=== PATIENT | male | born 1950 | race Caucasian/White ===

== ENCOUNTER 2016-09-11 16:33 | Emergency (ER) | payer BC ==
[~2016-09-11] VITALS: Ht 175.3 cm; Wt 117.9 kg
[2016-09-11] MEDS ORDERED: Morphine Sulfate 4mg/ml Inj IVP ONE (17:00)
[2016-09-11] MEDS ORDERED: Ketorolac 30mg Inj IV ONE (17:00)
[2016-09-11] MEDS ORDERED: ALLOPURINOL100 M1 ORAL (17:39)
[2016-09-11] MEDS ORDERED: PRAVASTATIN SOD20 M1 ORAL (17:39)
[2016-09-11] MEDS ORDERED: LOSARTAN POTASS50 MG ORAL (17:39)
[2016-09-11] MEDS ORDERED: ASPIRIN81 MG ORAL (17:39)
[2016-09-11] MEDS ORDERED: METFORMIN HCL500 M5 PO (17:39)
[2016-09-11] MEDS ORDERED: VITAMIN D1000 UNI1 ORAL (17:39)
[2016-09-11 17:48] LABS: BASOPHILS % (AUTO) 0.7 % (0.0-2.0); EOSINOPHILS % (AUTO) 1.4 % (0.0-3.0); LYMPHOCYTES % (AUTO) 14.2 % (20.0-45.0); MEAN CORPUSCULAR HEMOGLOBIN 29.9 PG (27.0-31.0); MEAN CORPUSCULAR HGB CONC 33.1 G/DL (32.0-36.0); MEAN CORPUSCULAR VOLUME 90 FL (80-99); MEAN PLATELET VOLUME 5.9 FL (6.5-10.1); MONOCYTES % (AUTO) 5.5 % (1.0-10.0); NEUTROPHILS % (AUTO) 78.2 % (45.0-75.0); PLATELET COUNT 236 K/UL (150-450); RED BLOOD COUNT 4.84 M/UL (4.70-6.10); RED CELL DISTRIBUTION WIDTH 12.5 % (11.6-14.8); WHITE BLOOD COUNT 10.6 K/UL (4.8-10.8)
[2016-09-11 18:13] LABS: PROTHROMBIN TIME 10.4 SEC (9.30-11.50)
[2016-09-11 18:15] VITALS: BP 142/82
[2016-09-11 18:26] LABS: ALANINE AMINOTRANSFERASE 25 U/L (3-41); ALBUMIN/GLOBULIN RATIO 1.5 (1.0-2.7); ANION GAP 20 (5-15); ASPARTATE AMINO TRANSFERASE 23 U/L (5-40); CALCIUM 9.4 mg/dL (8.6-10.2); CARBON DIOXIDE 21 mEQ/L (20-30); CHLORIDE 97 mEQ/L (98-107); CREATININE 1.2 mg/dL (0.7-1.2); GLOMERULAR FILTRATION RATE > 60 mL/min (>60); HEMOLYSIS 5; LIPASE 27 U/L (< 60); POTASSIUM 3.8 mEQ/L (3.4-4.9); SODIUM 138 mEQ/L (135-145); TOTAL PROTEIN 6.9 g/dL (6.6-8.7)
[2016-09-11 20:22] VITALS: BP 151/84
--- NOTE | 2016-09-11 20:43 | Emergency Room Report ---
History of Present Illness General Chief Complaint: Abdominal Pain Source: Patient Present Illness HPI The patient presents with severe right lower quadrant pain. Also has nausea and vomiting. He denies any fevers. Patient's past renal stones in the past. Usually has flank pain with that he decided flank pain this time. She's had no fever. His urine was dark earlier today. Pain is 10/10 not radiating sharp constant burning. Allergies: Coded Allergies: No Known Allergies (Unverified , 09/11/16) Patient History Past Medical History: see triage record Reviewed Nursing Documentation: PMH: Agreed, PSxH: Agreed Nursing Documentation-PMH Past Medical History: No History, Except For Hx Hypertension: Yes Hx Diabetes: Yes Physical Exam Vital Signs Date Time Temp Pulse Resp B/P Pulse Ox O2 Delivery O2 Flow Rate FiO2 09/11/16 16:41 96.1 60 16 178/83 99 Room Air Sp02 EP Interpretation: reviewed, normal General Appearance: well appearing, alert, GCS 15, non-toxic, moderate distress Head: normocephalic Eyes: bilateral eye normal inspection ENT: moist mucus membranes Neck: supple Respiratory: lungs clear, normal breath sounds Cardiovascular #1: regular rate, rhythm Cardiovascular #2: 2+ radial (R) Gastrointestinal: normal inspection, normal bowel sounds, non tender, no mass, non-distended Genitourinary: no CVA tenderness Musculoskeletal: back normal, gait/station normal, normal range of motion Neurologic: alert, oriented x3, grossly normal Psychiatric: other - In pain Skin: normal inspection, warm/dry Medical Decision Making Diagnostic Impression: Primary Impression: Renal colic ER Course Patient presents with severe right abdominal pain it was acute in onset. Differential includes perfect viscus, renal stone, ureteral stone, appendicitis , diverticulitis. Patient is in severe distress at this time and needs to have aggressive analgesia. Evaluation will be with labs and urinalysis at the moment. The pain doesn't subside completely an ultrasound be obtained. With medication and IV hydration the pain is reduced to 3/pain 10. Ultrasound is ordered. CT/MRI/US Diagnostic Results CT/MRI/US Diagnostic Results : Imaging Test Ordered: renal u/s Status: improved Disposition: HOME, SELF-CARE Condition: Improved Referrals: NON PHYSICIAN (PCP) Immanuel Meyer M.D. Sep 11, 2016 20:43
[2016-09-11 20:47] LABS: KETONES,URINE NEGATIVE (NEGATIVE); LEUKOCYTE ESTERASE ,URINE 1+ (NEGATIVE); NITRITE,URINE NEGATIVE (NEGATIVE); PH,URINE 6 (4.5-8.0); PROTEIN,URINE 3+ (NEGATIVE); UROBILINOGEN,URINE NORMAL MG/DL (0.0-1.0)
[2016-09-11 20:49] LABS: APPEARANCE,URINE SLIGHTLY CLOUDY
[2016-09-11 21:05] LABS: BACTERIA,URINE FEW /HPF; YEAST,URINE MODERATE /HPF
[2016-09-11 22:34] VITALS: BP 151/84
--- NOTE | 2016-09-12 14:30 | Diagnostic Imaging Report ---
Indication: Right flank pain Technique: Grayscale and duplex images of the kidneys, retroperitoneum, and bladder were obtained. Comparison:10/11/2009 abdomen ultrasound 04/29/2014 CT scan Findings: Right kidney measures 12.1 cm in length. Left kidney measures cm in length. Both kidneys demonstrate normal echogenicity. No hydronephrosis there there is suggestion of right hydronephrosis, although this could be due to parapelvic cysts. Favor the former, as this finding is not evident on prior ultrasound of or a CT of 2015. 5 mm hyperechoic focus within the right renal sinus may reflect the calculus demonstrated on the 2015 CT scan. There is some perinephric fluid adjacent to the right kidney. Unusual linear hyperechoic focus is seen adjacent to the right kidney. There are renal cysts bilaterally.. Normal inferior vena cava. Bladder is distended. Prevoid volume is 320 mL, postvoid volume is 235 mL. Bilateral ureteral jets are noted. Prostatic volume is 40 mL. Impression: Mild right renal hydronephrosis. Etiology indeterminate, although patient does have history of intrarenal calculi. The presence of a ureteral jet makes ureteral obstruction less likely, however. Nonobstructive right intrarenal calyceal calculus, also demonstrated on 2015 CT scan Perinephric fluid around the right kidney, etiology/significance uncertain Negative for left hydronephrosis Bilateral renal cysts incidentally noted Distended bladder, large (235 mL) post void residual .
== END 2016-09-11 22:35 | disposition home or self-care (01) ==
LOC: EMR 17:45
DX: N23 Unspecified renal colic (principal); E11.9 Type 2 diabetes mellitus without complications; I10 Essential (primary) hypertension
CPT/HCPCS: 36415; 76775; 80053; 81003; 83690; 84550; 85025; 85610; 85730; 87086; 96360; 96361; 96374; 96375; 99284; J1885; J2270; J2405